=== PATIENT | male | born 1980 | race Caucasian/White ===

== ENCOUNTER 2023-05-09 07:12 | Emergency (ER) | payer SELFPAY ==
[~2023-05-09] VITALS: Ht 165.1 cm; Wt 73.0 kg
[2023-05-09 07:22] VITALS: BP 145/85; PULSE 105; RESP 16; TEMP 98.5; O2SAT 99
== END 2023-05-09 10:57 | disposition left against medical advice (07) ==
LOC: ER 07:18
DX: Z00.00 Encounter for general adult medical examination without abnormal findings (principal); Z53.21 Procedure and treatment not carried out due to patient leaving prior to being seen by health care provider
CPT/HCPCS: 99283